=== PATIENT | male | born 1945 | race Caucasian/White ===

== ENCOUNTER 2017-08-05 06:13 | Day surgery (SDC) ==
[2017-08-05] MEDS ORDERED: LIDOCAINE 1% 20 ML MDV ID ONE (07:15)
[2017-08-05] MEDS ORDERED: VERSED ONE (08:00)
[2017-08-05] MEDS ORDERED: DIPRIVAN 20 ML VIAL IVP ONE (08:00)
[2017-08-05 09:00] VITALS: BP 110/70; TEMP 97.9
--- NOTE | 2017-08-06 07:11 | OP ---
PROCEDURE: COLONOSCOPY TO THE CECUM. ENDOSCOPIST: Gabriel ELDRIDGE M.D. INDICATION: HISTORY OF POLYPS; DATE OF LAST PROCEDURE 2011. INSTRUMENT: PCFH-190. MEDICATION: PER ANESTHESIA. PROCEDURE: The patient was positioned for colonoscopy. The digital rectal exam was negative. The colonoscope was inserted through the anus and advanced to the cecum. The cecum was identified using the ileocecal valve and the appendiceal orifice as landmarks. The scope was slowly withdrawn through an adequately prepped colon. Careful inspection is made of each colonic segment as the scope is withdrawn in a circumferential fashion. Care was taken to inspect the proximal side of the ileocecal valve, haustral folds, flexures and rectal valves. No evidence for inflammatory change, polyp or mass. Retroflex exam with hemorrhoids. The patient tolerated the procedure without immediate complication. Withdrawal time 6 minutes and 25 seconds. PLAN: 1. Repeat his procedure in five years for surveillance. 2. He can resume his Plavix today. CC: KELSEA TURNER M.D. MAR[facility]
== END 2017-08-05 08:53 | disposition home or self-care (01) ==
LOC: SURG 06:13
PROVIDERS: ATTEND Internal Medicine Gastroenterology
DX: Z09 Encounter for follow-up examination after completed treatment for conditions other than malignant neoplasm (principal); Z86.010 Personal history of colon polyps; K64.9 Unspecified hemorrhoids